=== PATIENT | female | born 1965 | race Caucasian/White ===

== ENCOUNTER → 2020-07-31 | Outpatient (CLI) | payer MEDICARE ==
[~2020-07-31] MED LIST: ALBUTEROL0.63 MG/3 INH; ALBUTEROL2.5 MG/3 M INH; ALVESCO6.1 G1 INH; ANTIVERT 25MG T25 MG PO; BACTROBAN OINT22 GM EXT; CALCIUM PO; FLONASE 0.05% N16 GM; FLUOXETINE HCL40 MG PO; FUROSEMIDE40 MG PO; GABAPENTIN100 MG PO; IBUPROFEN600 MG PO; LEVOTHYROXINE50 MCG PO; LIORESAL TAB 1010 MG PO; METOPROLOL TAR100 MG PO; MONTELUKAST SOD10 MG PO; MULTIVITAMIN1 EACH PO; MYCOLOG II OINT15 GM TOP; MYCOSTATIN CREA15 GM TOP; MYCOSTATIN100000 UTS PO; PHENTERMINE H37.5 M1 PO; POTASSIUM CHLO10 ME1 PO; PROTONIX 40 MG40 M1 PO; TRAMADOL HCL50 MG PO; TRAZODONE HCL150 MG PO; VITAMIN D31250 MCG PO; Voltaren Gel 1 % TOP; WELLBUTRIN XL300 M1 PO; ZOCOR 40 MG TAB40 MG PO
[2020-08-01 20:09] LABS: AMPHETAMINES, URINE Negative ng/mL (Cutoff=1000); BARBITURATE Negative ng/mL (Cutoff=200); BENZODIAZEPINES Negative ng/mL (Cutoff=200); CANNABINOIDS Negative ng/mL (Cutoff=20); COCAINE (METABOLITE) Negative ng/mL (Cutoff=300); CREATININE 122.9 mg/dL (20.0-300.0); MEPERIDINE Negative ng/mL (Cutoff=200); METHADONE Negative ng/mL (Cutoff=300); OPIATES Negative ng/mL (Cutoff=300); PHENCYCLIDINE Negative ng/mL (Cutoff=25); PROPOXYPHENE Negative ng/mL (Cutoff=300)
== END ==
LOC: LAB 10:58
PROVIDERS: Emergency Medicine
DX: Z51.81 Encounter for therapeutic drug level monitoring (principal); Z79.899 Other long term (current) drug therapy
CPT/HCPCS: 80307

== ENCOUNTER → 2020-07-31 | Outpatient (CLI) | payer MEDICARE | LOC: KOH-I 09:21 | DX: R41.81 Age-related cognitive decline (principal) | CPT/HCPCS: 70450 ==

== ENCOUNTER → 2020-09-04 | Outpatient (CLI) | payer MEDICARE ==
[2020-09-04 09:40] LABS: HEMOGLOBIN 13.4 gm/dl (12.3-15.3); RED BLOOD COUNT 4.45 M/UL (4.00-5.10); WHITE BLOOD COUNT 6.8 K/UL (4.5-11.0)
[2020-09-06 13:14] LABS: CHOLESTEROL, TOTAL 157 mg/dL (100-199); HDL SIZE 9.4 nm (>=9.2); HDL-C 77 mg/dL (>39); HDL-P (TOTAL) 51.1 umol/L (>=30.5); LARGE HDL-P 11.2 umol/L (>=4.8); LARGE VLDL-P 4.4 nmol/L (<=2.7); LDL SIZE 20.9 nm (>20.5); LDL SIZE 20.9 nm (>=20.8); LDL-C 63 mg/dL (0-99); LDL-P 850 nmol/L (<1000); LP-IR SCORE 45 (<=45); SMALL LDL-P 554 nmol/L (<=527); TRIGLYCERIDES 95 mg/dL (0-149); VLDL SIZE 51.4 nm (<=46.6)
== END ==
LOC: LAB 08:57
PROVIDERS: Emergency Medicine
DX: I10 Essential (primary) hypertension (principal); E03.8 Other specified hypothyroidism; E78.2 Mixed hyperlipidemia; M79.7 Fibromyalgia; E11.9 Type 2 diabetes mellitus without complications
CPT/HCPCS: 36415; 80053; 84443; 84550; 85025

== ENCOUNTER → 2020-10-25 | Outpatient (CLI) | payer MEDICARE | LOC: MAMO 14:33 | DX: Z12.31 Encounter for screening mammogram for malignant neoplasm of breast (principal) | CPT/HCPCS: 77063; 77067 ==

== ENCOUNTER → 2020-11-01 | Day surgery (SDC) | payer MEDICARE ==
[~2020-11-01] VITALS: Ht 154.9 cm; Wt 149.7 kg
== END | disposition home or self-care (01) ==
LOC: OR 07:17
DX: K64.0 First degree hemorrhoids (principal); I10 Essential (primary) hypertension; J44.9 Chronic obstructive pulmonary disease, unspecified; G47.30 Sleep apnea, unspecified; K21.9 Gastro-esophageal reflux disease without esophagitis; E03.9 Hypothyroidism, unspecified; Z80.0 Family history of malignant neoplasm of digestive organs; Z88.5 Allergy status to narcotic agent
CPT/HCPCS: J2001; J2704; J7040

== ENCOUNTER → 2021-01-25 | Outpatient (CLI) | payer MEDICARE ==
[~2021-01-25] MED LIST changes: +PERCOCET 5-3251 EACH PO
[2021-01-25 10:46] LABS: HEMOGLOBIN 13.3 gm/dl (12.3-15.3); RED BLOOD COUNT 4.37 M/UL (4.00-5.10); WHITE BLOOD COUNT 6.6 K/UL (4.5-11.0)
[2021-01-26 17:09] LABS: CHOLESTEROL, TOTAL 166 mg/dL (100-199); HDL SIZE 9.4 nm (>=9.2); HDL-C 80 mg/dL (>39); LARGE HDL-P 11.4 umol/L (>=4.8); LARGE VLDL-P 4.3 nmol/L (<=2.7); LDL SIZE 20.9 nm (>20.5); LDL SIZE 20.9 nm (>=20.8); LDL-C 69 mg/dL (0-99); LDL-P 873 nmol/L (<1000); LP-IR SCORE 50 (<=45); SMALL LDL-P 534 nmol/L (<=527); TRIGLYCERIDES 94 mg/dL (0-149); VLDL SIZE 54.4 nm (<=46.6)
== END ==
LOC: LAB 09:55
PROVIDERS: Emergency Medicine
DX: R06.02 Shortness of breath (principal); R73.09 Other abnormal glucose; I10 Essential (primary) hypertension; E03.8 Other specified hypothyroidism
CPT/HCPCS: 36415; 71046; 80053; 80061; 83036; 83704; 83880; 84443; 85025; 85379

== ENCOUNTER 2021-01-29 14:19 | Emergency (ER) | payer MEDICARE ==
[~2021-01-29 14:19] MED LIST changes: -PERCOCET 5-3251 EACH PO
[2021-01-29] MEDS ORDERED: PERCOCET 5-3251 EACH PO (17:42)
== END 2021-01-29 18:03 | disposition home or self-care (01) ==
LOC: ER1 14:19
DX: M79.651 Pain in right thigh (principal); M79.605 Pain in left leg
CPT/HCPCS: 93971; 99283

== ENCOUNTER → 2021-05-09 | Outpatient (CLI) | payer MEDICARE ==
[~2021-05-09] MED LIST changes: +PERCOCET 5-3251 EACH PO
== END ==
LOC: ECHO 11:00
DX: R06.02 Shortness of breath (principal)
CPT/HCPCS: ECHO; 93306; Q9957

== ENCOUNTER 2021-06-06 12:48 | Emergency (ER) | payer MEDICARE ==
[2021-06-06 14:23] LABS: HEMOGLOBIN 13.5 gm/dl (12.3-15.3); RED BLOOD COUNT 4.43 M/UL (4.00-5.10); WHITE BLOOD COUNT 10.4 K/UL (4.5-11.0)
[2021-06-06 14:58] LABS: BUN/CREATININE RATIO 21 (0-10)
[2021-06-06] MEDS ORDERED: OMNICEF 300 MG300 MG PO (15:52)
[2021-06-06] MEDS ORDERED: MECLIZINE HCL25 MG PO (16:06)
== END 2021-06-06 16:03 | disposition home or self-care (01) ==
LOC: ER1 12:48
PROVIDERS: Emergency Medicine
DX: N30.90 Cystitis, unspecified without hematuria (principal); E11.9 Type 2 diabetes mellitus without complications; H81.399 Other peripheral vertigo, unspecified ear
CPT/HCPCS: 70450; 80053; 81001; 82009; 82800; 82962; 85025; 96374; 99284; J2405

== ENCOUNTER → 2021-08-28 | Outpatient (CLI) | payer MEDICARE ==
[~2021-08-28] MED LIST changes: +MECLIZINE HCL25 MG PO; +OMNICEF 300 MG300 MG PO
[2021-08-28 15:36] LABS: HEMOGLOBIN 12.7 gm/dl (12.3-15.3); RED BLOOD COUNT 4.31 M/UL (4.00-5.10); WHITE BLOOD COUNT 8.3 K/UL (4.5-11.0)
== END ==
LOC: LAB 14:34
PROVIDERS: Emergency Medicine
DX: E11.42 Type 2 diabetes mellitus with diabetic polyneuropathy (principal); I10 Essential (primary) hypertension; E78.2 Mixed hyperlipidemia; E03.8 Other specified hypothyroidism; K21.9 Gastro-esophageal reflux disease without esophagitis; J20.9 Acute bronchitis, unspecified; R06.02 Shortness of breath; Z88.5 Allergy status to narcotic agent
CPT/HCPCS: 36415; 71046; 80053; 82306; 82607; 83036; 84443; 85025

== ENCOUNTER → 2021-11-07 | Outpatient (CLI) | payer MEDICARE ==
[2021-11-07 15:57] LABS: HEMOGLOBIN 13.7 gm/dl (12.3-15.3); RED BLOOD COUNT 4.66 M/UL (4.00-5.10)
== END ==
LOC: LAB 14:23
PROVIDERS: Internal Medicine Pulmonary Disease
DX: J45.40 Moderate persistent asthma, uncomplicated (principal); J44.9 Chronic obstructive pulmonary disease, unspecified; G47.34 Idiopathic sleep related nonobstructive alveolar hypoventilation
CPT/HCPCS: 36415; 36600; 71046; 82785; 82803; 85025

== ENCOUNTER → 2021-11-07 | Outpatient (CLI) | payer MEDICARE | LOC: HEART 5 10:27 | DX: R06.02 Shortness of breath (principal) | CPT/HCPCS: 94060; 94729 ==

== ENCOUNTER → 2021-11-24 | Outpatient (CLI) | payer MEDICARE | LOC: SLEEP 09:58 | DX: G47.33 Obstructive sleep apnea (adult) (pediatric) (principal); G47.10 Hypersomnia, unspecified | CPT/HCPCS: 95810 ==

== ENCOUNTER → 2022-01-31 | Outpatient (CLI) | payer MEDICARE ==
[2022-01-31 12:42] LABS: HEMOGLOBIN 12.9 gm/dl (12.3-15.3); RED BLOOD COUNT 4.31 M/UL (4.00-5.10); WHITE BLOOD COUNT 10.9 K/UL (4.5-11.0)
[2022-02-02 12:09] LABS: CHOLESTEROL, TOTAL 162 mg/dL (100-199); HDL SIZE 9.4 nm (>=9.2); HDL-C 79 mg/dL (>39); HDL-P (TOTAL) 53.2 umol/L (>=30.5); LARGE HDL-P 10.8 umol/L (>=4.8); LARGE VLDL-P 4.6 nmol/L (<=2.7); LDL SIZE 21.1 nm (>20.5); LDL SIZE 21.1 nm (>=20.8); LDL-C 65 mg/dL (0-99); LDL-P 800 nmol/L (<1000); LP-IR SCORE 42 (<=45); SMALL LDL-P 471 nmol/L (<=527); TRIGLYCERIDES 99 mg/dL (0-149)
== END ==
LOC: LAB 12:09
PROVIDERS: Nurse Practitioner
DX: Z00.01 Encounter for general adult medical examination with abnormal findings (principal); I10 Essential (primary) hypertension; E78.2 Mixed hyperlipidemia; E11.42 Type 2 diabetes mellitus with diabetic polyneuropathy
CPT/HCPCS: 36415; 80053; 80061; 83036; 83704; 84443; 85025